=== PATIENT | female | born 1980 | race Caucasian/White ===

== ENCOUNTER 2022-02-10 14:26 | Emergency (ER) | payer SELFPAY ==
[~2022-02-10 14:26] MED LIST: MOBIC15 MG PO
[2022-02-10] MEDS ORDERED: CEPHALEXIN500 MG PO (15:23)
== END 2022-02-10 16:09 | disposition home or self-care (01) ==
LOC: ER1 14:26
DX: S61.310A Laceration without foreign body of right index finger with damage to nail, initial encounter (principal); Z88.0 Allergy status to penicillin; W26.0XXA Contact with knife, initial encounter; Y92.89 Other specified places as the place of occurrence of the external cause; Y99.0 Civilian activity done for income or pay
CPT/HCPCS: 90471; 90714; 99282